=== PATIENT | female | born 1980 | race African-American/Black ===

== ENCOUNTER 2019-01-15 09:20 | Outpatient (CLI) | payer BC, OTHER | END 2019-01-15 09:21 | disposition home or self-care (01) | LOC: LABHHL 09:20 | PROVIDERS: ATTEND Surgery | DX: N63.0 Unspecified lump in unspecified breast (principal) | CPT/HCPCS: 88112 ==

== ENCOUNTER 2019-11-19 09:52 | Outpatient (CLI) | payer BC ==
--- NOTE | 2019-11-22 08:20 | Ultrasound Report ---
BILATERAL BREAST ULTRASOUND INDICATION: Follow-up evaluation of finding noted previously in the right breast (patient states it h as been aspirated previously) COMPARISON: 11/07/2019, 12/24/2018, 07/24/2018, 01/10/2018. FINDINGS: Sonographic evaluation of both breasts was performed. RIGHT BREAST: A previously noted suspected cystic lesion in the right breast at the 10:30 position, 1 0 cm from the nipple, is decreased in size and currently measures 5 x 7 x 4 mm (previously this measu red 16 x 12 x 13 m on 07/24/2018 exam). Patient states this was aspirated previously. There is no inte rval detrimental change or new suspicious finding within the right breast. LEFT BREAST: Located within the left breast at the 11:00 position, 4 cm from the nipple, is a 3 x 4 x 6 mm solid-appearing partially circumscribed hypoechoic lesion. This may represent a fibroadenoma. I ts position deep within the breast limits definitive characterization. IMPRESSION: 1. Left breast lesion at the 11:00 position for which ultrasound-guided biopsy is recommended. 2. Interval decreased size of right breast cystic-appearing lesion at the 10:30 position. This was pr eviously aspirated per the patient. Assuming the sampling results were benign, a decrease in size wou ld support a benign etiology. No new suspicious findings within the right breast. BI-RADS Category 4: Suspicious for Malignancy. A "normal" or negative report should not discourage follow up or biopsy of a clinically significant f inding. A written summary of these findings will be mailed to the patient. FURTHER INFORMATION: According to the [employer], yearly mammograms are recommend ed starting at age 40 and continuing as long as a woman is in good health. Breast MRI is recommended for women with an approximately 20-25% or greater lifetime risk of breast cancer, including women wi th a strong family history of breast or ovarian cancer and women who have been treated for Hodgkin's disease. Signer Name: Kanu Arnett MD Signed: 11/19/2019 10:49 AM Workstation Name: [id number]
== END 2019-11-19 09:53 | disposition home or self-care (01) ==
LOC: SPVWC 09:52
PROVIDERS: ATTEND Surgery
DX: N64.89 Other specified disorders of breast (principal); N64.4 Mastodynia

== ENCOUNTER 2019-12-04 08:38 | Outpatient (CLI) | payer BC ==
--- NOTE | 2019-12-04 10:13 | Mammography Report ---
Procedure: Ultrasound-guided left breast biopsy, Clinical information/indication: Patient with a complex cyst versus small mass at the 11:00 position of the left breast, here for aspiration versus biopsy Comparison: Breast ultrasound from 11/19/2019 and diagnostic mammogram from 11/07/2019 Procedure: The benefits, indications and risks were discussed with the patient including but not limi chitra to bleeding, infection, hematoma formation, and inadequate tissue sampling. The patient agreed to proceed with both verbal and written consent. A timeout procedure was performed using 2 patient iden tifiers. The breast was prepped and draped in the usual sterile fashion. Lidocaine with and without epinephrin e were used for local anesthesia. Under direct ultrasound guidance, multiple core samples were obtain ed of the left breast nodule. A biopsy marker was then placed. Biopsy device was removed and hemostas is achieved with manual pressure. A sterile dressing was applied to the skin. The patient tolerated the procedure without difficulty. No complications were encountered. Specimens were sent to pathology. The patient was then sent for a limited mammogram to confirm clip placement. IMPRESSION: 1. Technically successful left breast nodule breast biopsy. 2. Post-procedure mammogram demonstrates satisfactory clip placement. An addendum will be issued once pathology returns on this procedure. Signer Name: Waylon Rosenbaum MD Signed: 12/04/2019 10:09 AM Workstation Name: [id number]
== END 2019-12-04 08:39 | disposition home or self-care (01) ==
LOC: SPVWC 08:38
PROVIDERS: ATTEND Surgery
DX: N63.22 Unspecified lump in the left breast, upper inner quadrant (principal); N60.22 Fibroadenosis of left breast; N64.89 Other specified disorders of breast
CPT/HCPCS: 88305

== ENCOUNTER 2020-11-11 10:05 | Outpatient (CLI) | payer BC ==
--- NOTE | 2020-11-12 09:51 | Mammography Report ---
DIGITAL SCREENING MAMMOGRAM WITH TOMOSYNTHESIS WITH CAD, 11/11/2020 CLINICAL INFORMATION / INDICATION: Routine Screening Mammography. TECHNIQUE: Digital bilateral 2D and 3D mammography with tomosynthesis was obtained in the craniocaud al and mediolateral oblique projections. Computer-Aided Detection (CAD) analysis was used for interp retation of this study. COMPARISON: 12/24/2018 FINDINGS: Breast Density: The breasts are extremely dense, which lowers the sensitivity of mammography. No dominant mass, suspicious calcifications, or architectural distortion in either breast. Scattered benign calcifications throughout the left breast as well as left breast biopsy clip. Biopsy clip is new compared to prior exams. Otherwise, no significant interval change. IMPRESSION: No mammographic evidence of malignancy. Follow up recommendation: Routine yearly BI-RADS Category 2: Benign. A "normal" or negative report should not discourage follow up or biopsy of a clinically significant f inding. A written summary of these findings will be mailed to the patient. The patient will be entered into a mammography reporting system which will generate a reminder letter for the patient's next appointmen t at the appropriate interval. The [employer] recommends yearly mammograms starting at age 40 and continuing as l meng as a woman is in good health. Breast MRI is recommended for women with an approximate 20-25% or greater lifetime risk of breast cancer, including women with a strong family history of breast or ova leydi cancer or who have been treated for Hodgkin's disease. Signer Name: Lesly Jarrett MD Signed: 11/12/2020 9:47 AM Workstation Name: [id number]
== END 2020-11-11 10:06 | disposition home or self-care (01) ==
LOC: SPVWC 10:05
PROVIDERS: ATTEND Surgery
DX: Z12.31 Encounter for screening mammogram for malignant neoplasm of breast (principal); N64.89 Other specified disorders of breast
CPT/HCPCS: 77063; 77067